=== PATIENT | female | born 1960 | race Caucasian/White ===

== ENCOUNTER 2025-01-09 13:45 | Outpatient (CLI) | payer OTHER, SELFPAY | END 2025-01-09 13:46 | disposition home or self-care (01) | LOC: AMB 01-12 09:47 | PROVIDERS: Visit Provider Student in an Organized Health Care Education/Training Program | DX: S79.911A Unspecified injury of right hip, initial encounter (principal); S69.92XA Unspecified injury of left wrist, hand and finger(s), initial encounter; S49.92XA Unspecified injury of left shoulder and upper arm, initial encounter; V49.49XA Driver injured in collision with other motor vehicles in traffic accident, initial encounter; Y92.488 Other paved roadways as the place of occurrence of the external cause | CPT/HCPCS: A0425; A0427 ==

== ENCOUNTER 2025-01-09 14:13 | Emergency (ER) | payer OTHER, SELFPAY ==
[2025-01-09] VITALS (15 sets, daily range): BP systolic 134–145; BP diastolic 68–106; PULSE 50–63; RESP 16–18; TEMP 36.7; O2SAT 95–100; BMI 22.1
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
--- OUTSIDE RECORDS SUMMARY | 2025-01-09 14:54 | XMS_ITS | Encounter Summary ---
Author Organization [facility] er Address [address] [place] [address] Care Team Providers Care Fish House Worker Name Role Phone Yazmin Mcintyre APRN Primary Care Provider Reason for Visit * Reason Comments Med Refill Encounter Details Date Type Department Care Team (Late st Contact Info) Description 12/28/2024 Refill [place] [address] [place] [address] Yazmin Mcintyre STAFF CLIMATE SCIENTIST [address] [place] [address] Bipolar 2 disorder (HCC) Social History Tobacco Use Types Packs/Day Years Used Date Smoking Tobacco: Never Passive Smoke Exposure: Never Smokeless Tobacco: Never Alcohol Use Standard Drinks/Week Comments Yes 0 (1 standard drink = 0.6 oz pur e alcohol) Rare B1300 Health Literacy Answer Date Recor ded How often do you need to hav e someone help you when you read instructions, pamphlets, or other written material from your doctor or pharmacy? Never 10/05/2024 [facility] Utilities Answer Date Recorded In the past 12 months has [facility] [employer]), gas, oil, or water [employer] threatened to shut off services in your home? No 10/05/2024 Humiliation, Afraid, Rape, and Kick questionnair e Answer Date Recorded Within the last year, have y ou been afraid of your partner or ex-partner? No 10/05/2024 Within the last year, have y ou been humiliated or emotionally abused in other ways by your partner or ex-partner? No Within the last year, have y ou been kicked, hit, slapped, or otherwise physically hurt by your partner or ex-partner? No 10/05/2024 Within the last year, have y ou been raped or forced to have any kind of sexual activity by your partner or ex-partner? No 10/05/2024 Social Connection and Isolat ion Panel [NHANES] Answer Date Recorded In a typical week, how many times do you talk on the phone with family, friends, or neighbors? More than three times a week 10/05/2024 How often do you get togethe r with friends or relatives? More than three times a week 10/05/2024 How often do you attend chur or baptist services? 1 to 4 times per year 10/05/2024 Do you belong to any clubs o r organizations such as temple groups, unions, fraternal or athletic groups, or school groups? No 10/05/2024 How often do you attend meet ings of the clubs or organizations you belong to? Never 10/05/2024 Are you , , di vorced, , never , or living with a partner? 10/05/2024 AUDIT-C Answer Date Recorded Q1: How often do you have a drink containing alcohol? Never 10/05/2024 Q2: How many drinks containi ng alcohol do you have on a typical day when you are drinking? Patient does not drink Q3: How often do you have si x or more drinks on one occasion? Never 10/05/2024 Overall Financial Resource Strain (CARDIA) Answe r Date Recorded How hard is it for you to pa y for the very basics like food, housing, medical care, and heating? Not hard at all 10/05/2024 PHQ-2 Answer Date Recorded PHQ-9 Total Score 0 12/02/2024 [facility] of Occupat ional Health - Occupational Stress Questionnaire Answer Date Recorded Do you feel stress - tense, restless, nervous, or anxious, or unable to sleep at night because your mind is troubled all the time - these days? Only a little 10/05/2024 Exercise Vital Sign Answer Date Recorde d On average, how many days pe r week do you engage in moderate to strenuous exercise (like a brisk walk)? 7 days 10/05/2024 On average, how many minutes do you engage in exercise at this level? 80 min 10/05/2024 Hunger Vital Sign Answer Date Recorded Within the past 12 months, y ou worried that your food would run out before you got the money to buy more. Never true 10/05/19 25 Within the past 12 months, t he food you bought just didn't last and you didn't have money to get more. Never true 10/05/2024 PRAPARE - Transportation Answer Date Re corded In the past 12 months, has l ack of transportation kept you from medical appointments or from getting medications? No 09/08 In the past 12 months, has l ack of transportation kept you from meetings, work, or from getting things needed for daily living? No 10/05/2024 Housing Stability Vital Sign Answer Nathan e Recorded In the last 12 months, was t here a time when you were not able to pay the mortgage or rent on time? No 08/07/2023 In the last 12 months, how many places have you lived? 3 08/07/2023 In the last 12 months, was t here a time when you did not have a steady place to sleep or slept in a halfway (including now)? No 08/07/2023 Housing Stability Vital Sign Answer Nathan e Recorded In the last 12 months, was t here a time when you were not able to pay the mortgage or rent on time? No 10/05/2024 In the past 12 months, how m any times have you moved where you were living? 0 10/05/2024 At any time in the past 12 m [facility], were you homeless or living in a halfway (including now)? No 10/05/2024 Interpersonal Safety Questionnaire Answer Date Recorded How often does anyone, alida zimmer family and friends, physically hurt you? Never 10/05/2024 How often does anyone, alida zimmer family and friends, insult or talk down to you? Never 10/05/2024 How often does anyone, alida zimmer family and friends, threaten you with harm? Never 10/05/2024 How often does anyone, alida zimmer family and friends, threaten you with harm? 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 * Telephone Encounter - Janay Diaz MA - 01/02/2025 2:38 PM CDT Patient is due for (recheck) appointment. PSR: Please contact patient to assist with scheduling. Return in about 6 weeks (around 11/16/2024) for Recheck: anxiety. Upcoming appointment with provider: Visit date not found Last visit in provider department: 11/18/2024 Last visit requested medication was discussed: 10/05/2024 Last Rx: 10/05/2024 # 30, 1 refill Requested Prescriptions Pending Prescriptions Disp Refills busPIRone (BUSPAR) 5 MG tablet [Pharmacy Med Name: BUSPIRONE HCL 5MG TABS] 30 tablet 1 Sig: TAKE ONE TABLET BY MOUTH EVERY DAY 12/02/2024 PHQ9: 0 10/05/2024 GAD7: 2 Vitals: BP Readings from Last 2 Encounters: 12/09/24 102/57 11/28/24 95/71 Last Controlled Substance Agreement (CSA): Last Random Urine Drug Screen (RUDS): documented in this encounter Plan of Treatment Upcoming Encounters Date Type Department Care Team (Late st Contact Info) Description 01/19/2025 11:15 AM CDT Office Visit [facility] Plastic Surgery [address] [place] [address] [phone] Sabi Jackson MBBS [address] [place], [place] [phone] documented as of this encounter Visit Diagnoses Diagnosis Bipolar 2 disorder (HCC) Other bipolar disorders documented in this encounter Care Teams Fish House Worker Relationship Specialty Start Date End Date Yazmin Mcintyre, STAFF CLIMATE SCIENTIST [address] [place] [address] PCP - General Family Medicine 10/05/23 documented as of this encounter
--- OUTSIDE RECORDS SUMMARY | 2025-01-09 14:54 | XMS_ITS | Clinical Summary ---
Author Organization [employer] [facility] [employer] [facility] Address [address] [place] [address] Care Team Providers Care Aviation Ordnance Officer Name Role Phone Yissel Quinn MD Primary Care Provider [phone] None, Provided Unavailable Unavailable Allergies Active Allergy Reactions Criticality Noted Date Comments Erythromycin Other - Describe In Comment Field 09/05/2016 Stomach ache Medications calcium carbonate/vitamin D2 (CALCIUM + VITAMIN D ORAL) 2 times daily. 1 Active multivitamin with iron-mineral tablet Take 1 Tab by mouth once daily. 1 Active lamoTRIgine (LAMICTAL) 100 mg tablet Take 100 mg by mouth. Active metFORMIN (GLUCOPHAGE) 1,000 mg tablet Take 1,000 mg by mouth. 8 Active propranolol ER (INDERAL LA) 120 mg Cs24 Sustained-Release capsule Take 120 mg by mouth. Active QUEtiapine (SEROQUEL XR) 400 mg Extended-Release tablet Take 400 mg by mouth. Active traZODone (DESYREL) 100 mg tablet 7 Active venlafaxine (EFFEXOR XR) 150 mg Extended-Release capsule Take 1 Cap by mouth once daily. 1 Active oxyCODONE (ROXICODONE) 5 mg immediate release tablet Take 1-2 Tablets (5-10 mg) by mouth. every 4 to 6 hours if needed for pain. 32 Tablet 08/26/2021 5:43 PM OFFICE ADMIN 1 Active hydrOXYzine pamoate (VISTARIL) 25 mg capsule Take 1-2 Capsules (25-50 mg) by mouth. every 4 to 6 hours if needed for pain/muscle spasm. 60 Capsule 08/26/2021 5:43 PM OFFICE ADMIN 1 Active ibuprofen (ADVIL; MOTRIN) 800 mg tablet Take 1 Tablet (800 mg) by mouth 3 times daily if needed for pain 60 Tablet 08/26/2021 5:43 PM OFFICE ADMIN 1 Active ondansetron (ZOFRAN ODT) [address] 1 Tablet (4 mg) on the tongue every 8 hours if needed. for nausea 14 Tablet 08/26/2021 5:43 PM OFFICE ADMIN 1 Active acetaminophen (TYLENOL EXTRA STRGTH) 500 mg tablet Take 2 Tablets (1,000 mg) by mouth every 6 hours if needed. for pain 100 Tablet 08/26/2021 5:43 PM OFFICE ADMIN 1 Active Active Problems No known active problems Social History Tobacco Use Types Packs/Day Years Used Date Smoking Tobacco: Never Assessed Social Connections Answer Date Recorded Frequency of Communication with Friends and Fami ly Not on file 09/03/2021 Financial Resource Strain Answer Date R ecorded Difficulty of Paying Living Expenses Not on file 09/03/2021 Difficulty of Paying Living Expenses Not on file 09/03/2021 Comments Unknown Sex and Gender Information Value Date Recorded Sex Assigned at Not on file Legal Sex Female 11:54 AM OFFICE ADMIN Gender Identity Not on file Sexual Orientation Not on file Obstetrics History Last Filed Vital Signs Vital Sign Reading Time Taken Comments Blood Pressure 126/69 11/18/2018 8:58 AM CDT Pulse 96 11/18/2018 8:58 AM CDT Temperature 36.6 C (97.9 F) 11/18/2018 8:58 AM CDT Respiratory Rate - - Oxygen Saturation 99% 11/18/2018 8:58 AM CDT Inhaled Oxygen Concentration - - Weight - - Height - - Body Mass Index - - Plan of Treatment Health Maintenance Due Date Last Done Comments Tdap 1973 Depression screening for age 12+ 1974 HIV for age 15-65 1977 BMI (ht and wt on same day) for age 18+ 1980 Hepatitis C screening for age 18-79 1980 Tetanus booster 1982 Pap test for age 21-65 1983 Colonoscopy through age 75 2007 Lipids for age 45-75 2007 Mammogram for age 45-75 2007 Pneumococcal series for age 50+ (1 of 1 - PCV) 2012 Zoster (shingles) series for age 50+ (1 of 2) 2012 COVID-19 vaccine series (3 - 2023- season) 2024 12/26/2020, 12/05/2020 Influenza Vaccine (Season Ended) 2025 RSV vaccine for adults or pr egnancy (1 - 1-dose 75+ series) 2037 [id number] [place] [id number] [email or web address] [address] [place] [id number] [facility] Care Teams Aviation Ordnance Officer Relationship Specialty Start Date End Date Yissel Quinn MD PCP - General Resident 12/24/20 None, Provided . 12/24/20
--- OUTSIDE RECORDS SUMMARY | 2025-01-09 14:54 | XMS_ITS | Encounter Summary ---
Author Organization [employer] er Address [address] [place] [address] Care Team Providers Care Brood Station Manager Name Role Phone Yazmin Mcintyre APRN Primary Care Provider Reason for Visit * Reason Onset Date Comments Incision Concern 12/21/2024 Encounter Details Date Type Department Care Team ([facility] st Contact Info) Description 12/21/[address] [facility] Plastic Surgery [address] [place] [address] Sabi Jackson MBBS [address] [place] [address] Incision Concern Social History Tobacco Use Types Packs/Day Years [...] from your doctor or pharmacy? Never 10/05/2024 [facility] Utilities Answer Date Recorded In the past 12 months has e [employer], gas, oil, or water [employer] threatened to shut off services in your [...] How often do you attend chur or presybeterian services? 1 to 4 times per year 10/05/2024 Do you belong to any clubs o r organizations such as voodoo groups, unions, fraternal or athletic groups, or [...] Date Recorded PHQ-9 Total Score 0 12/02/2024 [facility] of Occupat ional Health - Occupational Stress [...] place to sleep or slept in a half-way (including now)? No 08/07/2023 Housing Stability Vital Sign Answer Nathan e Recorded In the last 12 months, was t here a time when you were not able to pay the mortgage or rent on time? No 10/05/2024 In the past 12 months, how m any times have you moved where you were living? 0 10/05/2024 At any time in the past 12 m [facility], were you homeless or living in a half-way (including now)? 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 Patient states she thinks her incision is infected. Patient had surgery 12/09/2024 for a labia majora reduction with Dr. Saleem. Please call patient. documented in this encounter Plan of Treatment Upcoming Encounters Date Type Department Care Team (Late st Contact Info) Description 01/19/2025 11:15 AM CDT Office Visit [facility] Plastic Surgery [address] [place] [phone] [place] [address] [place] [phone] documented as of this encounter Visit Diagnoses Not on filedocumented in this encounter Care Teams Brood Station Manager Relationship Specialty Start Date End Date Yazmin Mcintyre APRN [address] [place] [phone] PCP - General Family Medicine 10/05/23 documented as of this encounter
--- OUTSIDE RECORDS SUMMARY | 2025-01-09 14:54 | XMS_ITS | Encounter Summary ---
Author Organization [facility] er Address [address] [place] [address] Care Team Providers Care Parts Picker Name Role Phone Yazmin Mcintyre APRN Primary Care Provider Encounter Details Date Type Department Care Team ([facility] st Contact Info) Description 12/21/2024 Telephone [facility] Plastic Surgery [address] [place] [address] Diony Cole, MEHNAZ [address] [place] [phone] Social History Tobacco Use Types Packs/Day Years [...] from your doctor or pharmacy? Never 10/05/2024 [facility] Utilities Answer Date Recorded In the past 12 months has [facility] [employer] gas, oil, or water [employer] threatened to shut off services in your [...] How often do you attend chur or lutheran services? 1 to 4 times per year 10/05/2024 Do you belong to any clubs o r organizations such as moravian groups, unions, fraternal or athletic groups, or [...] Date Recorded PHQ-9 Total Score 0 12/02/2024 [facility] of Occupat ional Health - Occupational Stress [...] place to sleep or slept in a usp (including now)? No 08/07/2023 Housing Stability Vital Sign Answer Nathan e Recorded In the last 12 months, was t here a time when you were not able to pay the mortgage or rent on time? No 10/05/2024 In the past 12 months, how m any times have you moved where you were living? 0 10/05/2024 At any time in the past 12 m [facility], were you homeless or living in a usp (including now)? 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 Patient denies fever, n/v, diarrhea, chest pain. Patient stated she tried Tylenol and Ibuprofen with no relief. Orchid Hand suggested Katie isaac the office to be evaluated and to discuss next steps. Patient agreed with plan and was transferred to PSR to schedule and appointment. documented in this encounter Plan of Treatment Upcoming Encounters Date Type Department Care Team (Late st Contact Info) Description 01/19/2025 11:15 AM CDT Office Visit [facility] Plastic Surgery [address] [place] [phone] Sabi Jackson MBBS [address] [place] [address] [phone] documented as of this encounter Visit Diagnoses Not on filedocumented in this encounter Care Teams Parts Picker Relationship Specialty Start Date End Date Yazmin Mcintyre APRN [address] [place] [phone] PCP - General Family Medicine 10/05/23 documented as of this encounter
--- OUTSIDE RECORDS SUMMARY | 2025-01-09 14:54 | XMS_ITS ---
Author Organization [facility] Address [address] [place] [address] Care Team Providers Care Recreation Manager Name Role Phone Hemant Mijares MD Primary Care Provider [phone] Christine Davila Pharm D Unavailable [phone] Medication Therapy Management Status:Identified (Enrolling) Start date:01/30/2023 Enrollment reason:Provider Referral Current support & services provided:Referred Overview Medication Therapy Management Case Team Name Relationship Phone Christine Davila Pharm D (Responsible Staff) Continued Care and Services Coordination
--- OUTSIDE RECORDS SUMMARY | 2025-01-09 14:54 | XMS_ITS | Encounter Summary ---
Author Organization [facility] er Address [address] [place] [address] Care Team Providers Care Public Housing Manager Name Role Phone Yazmin Mcintyre APRN Primary Care Provider Encounter Details Date Type Department Care Team ([facility] st Contact Info) Description 12/21/2024 2:30 PM CDT Office Visit [facility] Plastic Surgery [address] [place] [address] [place] [address] [place] [address] Post-op pain (Primary Dx); Hypertrophy of labia Social History Tobacco Use Types Packs/Day Years [...] from your doctor or pharmacy? Never 10/05/2024 [facility] Utilities Answer Date Recorded In the past 12 months has e [employer], gas, oil, or water [employer] threatened to shut off services in your [...] How often do you attend chur or orthodox services? 1 to 4 times per year 10/05/2024 Do you belong to any clubs o r organizations such as samaritan groups, unions, fraternal or athletic groups, or [...] Date Recorded PHQ-9 Total Score 0 12/02/2024 [facility] of Occupat ionde Health - Occupational Stress Questionnaire Answer Date [...] place to sleep or slept in a correction (including now)? No 08/07/2023 Housing Stability Vital Sign Answer Nathan e Recorded In the last 12 months, was t here a time when you were not able to pay the mortgage or rent on time? No 10/05/2024 In the past 12 months, how m any times have you moved where you were living? 0 10/05/2024 At any time in the past 12 m [facility], were you homeless or living in a correction (including now)? 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 The redness will gradually go away. Please continue to keep area clean and dry. Do not apply any antiobiotic ointment to the surgical site. If your pants is rubbing on the incision, wear something loose, or sweat pants that will not rub onthe incision. Take tramadol every 6 hours, for moderate to severe pain. Alternate Ibuprofen 600mg every 6 hours, and extra strength Tylenol 1,000mg every 6 hours for mild pain. Call Plastics immediately if you have the [phone] Signs and symptoms of infection: Increased redness and increased swelling, surrounding incision Pus drains, associated with bad odor Develop a temperature. 100.4 degrees or higher Increased pain, you are taking tramadol around the clock documented in this encounter Progress Notes * Vera Mahoney RN - 12/21/2024 2:30 PM CDT Pain 8/. No fevers. Last taken Oxy on Thursday. Last pain medication yesterday- 800mg ibuprofen Cleansing with just water. Plan of Care: Your incision is not infected. The redness will gradually go away. Please continue to keep area clean and dry. Do not apply any antiobiotic ointment to the surgical site. Take tramadol every 6 hours, for moderate to severe pain. Alternate Ibuprofen 600mg every 6 hours, and extra strength Tylenol 1,000mg every 6 hours for mild pain. If your pants is rubbing on the incision, wear something loose, or sweat pants that will not rub onthe incision. Reviewed and demonstrated incisional massaging starting 3 weeks post surgery, December 30, 2024. Signs and symptoms of infection: Increased redness and increased swelling, surrounding incision Pus drains, associated with bad odor Develop a temperature. 100.4 degrees or higher Increased pain, you are taking tramadol around the clock Sent tramadol to desired pharmacy. Went over incisional massaging in three weeks from surgery. * Sabi Jackson MBBS - 12/21/2024 2:30 PM CDT Katie Downing returns 12 days after labioplasty with concerns of wound infection. Patient reports painat her surgical sites and tenderness along the labia majora incisions. She states her scars are red, and she has noticed scant drainage from the left lateral aspect of the mons scar. She denies fever, chills, foul odor or other drainage from her incisions. Patient states she is out of narcotic pain medication. Exer strength Tylenol and ibuprofen 800 mg are not enough to manage her symptoms. On exam, incisions are healing well and without signs of infection. Scars are appropriately erythematous, but this is reactive erythema and not erythema of cellulitis. Scars are well-approximated without areas of wound dehiscence. Small subcutaneous hematoma along the left labia majora scar. Reassurance was provided. Her scars are healing well without signs of complications. It is normal for scars to be red and lumpy in the first few weeks after surgery. Scars will soften and fade over several months after surgery. The small hematoma will resolve spontaneously, likely within the next couple of weeks. Patient states she does not like the transverse scar across her mons and her lower abdomen. I reassured her that it is still early in her recovery, and we will continue to look at her scars together over the next several months. In the interim, I will provide her with a prescription for tramadol to assist with her pain management. We again discussed alternating Tylenol, ibuprofen and tramadol for optimal pain relief. Patient educated on signs and symptoms that would warrant earlier evaluation. She will follow-up with me at 6 weeks or sooner as needed. MORTEZA Healy documented in this encounter Plan of Treatment Upcoming Encounters Date Type Department Care Team (Late st Contact Info) Description 01/19/2025 11:15 AM CDT Office Visit [facility] Plastic Surgery [address] [place] [phone] Sabi Jackson MBBS [address] [place] [address] documented as of this encounter Visit Diagnoses Diagnosis Post-op pain- Primary Other acute postoperative pain Hypertrophy of labia documented in this encounter Care Teams Public Housing Manager Relationship Specialty Start Date End Date Yazmin Mcintyre, BRINE TANK OPERATOR [address] [place] [phone] PCP - General Family Medicine 10/05/23 documented as of this encounter
--- OUTSIDE RECORDS SUMMARY | 2025-01-09 14:54 | XMS_ITS | Clinical Summary ---
Author Organization [facility] er Address [address] [place] [address] Care Team Providers Care Block Captain Name Role Phone Yazmin Mcintyre APRN Primary Care Provider Allergies Active Allergy Reactions Criticality Noted Date Comments Erythromycin Other (see comments) 09/05/2016 Stomach ache Metformin Diarrhea Low 05/29/2022 Medications valACYclovir (Valtrex) 500 MG tabletIndication s:Herpes simplex infection of genitourinary system Take 1 tablet (500 mg total) by mouth 1 (one) time each day On file. 90 tablet 3 10/05/19 25 026 Active traZODone (DESYREL) 100 MG tabletIndication s:Insomnia, unspecified type Take 3 tablets (300 mg total) by mouth at night if needed for sleep On file. 270 tablet 3 10/05/19 25 026 Active buPROPion XL (WELLBUTRIN XL) 300 MG 24 hr tabletIndication s:Bipolar 2 disorder (HCC) Take 1 tablet (300 mg total) by mouth at bed time On file. 90 tablet 3 10/05/19 25 026 Active lamoTRIgine (LaMICtal) 100 MG tabletIndication s:Bipolar 2 disorder (HCC) Take 2 tablets (200 mg total) by mouth 2 (two) times a day On file 360 tablet 3 10/05/19 25 026 Active albuterol HFA (Ventolin HFA) 108 (90 Base) MCG/ACT inhalerIndicatio ns:Influenza A Inhale 2 puffs every 4 (four) hours if needed for wheezing or shortness of breath 18 g 11/19/19 25 026 Active oxyCODONE (Roxicodone) 5 MG immediate release tabletIndication s:Post-op pain Take 1 tablet (5 mg total) by mouth every 4 (four) hours if needed for moderate pain or severe pain for up to 20 doses 20 tablet 12/03/19 25 Active busPIRone (BUSPAR) 5 MG tabletIndication s:Bipolar 2 disorder (HCC) TAKE ONE TABLET BY MOUTH EVERY DAY 90 tablet 01/04/20 25 Active busPIRone (BUSPAR) 5 MG tabletIndication s:Bipolar 2 disorder (HCC) Take 1 tablet (5 mg total) by mouth 1 (one) time each day 30 tablet 1 10/05/19 25 025 Discontinued ondansetron ODT (ZOFRAN-ODT) 4 MG dispersible tabletIndication s:Post-operative nausea and vomiting Take 1 tablet (4 mg total) by mouth every 8 (eight) hours if needed for nausea or vomiting for up to 5 doses 5 tablet 12/03/19 25 025 Discontinued(T herapy Completed) cefuroxime (CEFTIN) 500 MG tabletIndication s:Prophylactic antibiotic Take one tablet, one hour before procedure. Take second tablet at night, day of procedure. 2 tablet 12/03/19 25 025 Discontinued(T herapy Completed) diazePAM (Valium) 5 MG tabletIndication s:Anticipatory anxiety Take one tablet one hour before procedure. 1 tablet 12/03/19 25 025 Discontinued(T herapy Completed) LORazepam (Ativan) 1 MG tabletIndication s:Anticipatory anxiety Do not take until Provider instructs you when to take them. 3 tablet 12/03/19 25 025 Discontinued(T herapy Completed) traMADol (Ultram) 50 MG tabletIndication s:Post-op pain Take 1-2 tablets (50-100 mg total) by mouth every 6 (six) hours if needed for moderate pain or severe pain for up to 5 days 20 tablet 12/22/19 25 025 Active Problems Problem Noted Date Diagnosed Date Influenza A 11/18/2024 Assessment & Plan (11/18/2024 4:53 PM CDT): Continue Mucinex 1200 mg 2 x day for 7-10 days Start zyrtec, Claritin or marcie daily for 14-30 days Start Albuterol inhaler: 2 puffs every 4 hours as needed Visit for annual health examination 10/05/2024 Assessment & Plan (10/05/2024 12:22 PM TRIPLE VALVE MECHANIC): Fasting labs will be ordered today Encounter for screening mammogram for breast can cer 10/05/2024 Insomnia 10/05/2024 Assessment & Plan (10/05/2024 12:22 PM TRIPLE VALVE MECHANIC): Continue Trazodone 100 mg daily Acquired left foot drop 11/17/2023 Assessment & Plan (11/17/2023 5:13 PM CDT): Referral to podiatry Wear comfortable/supportive shoes Wear supportive shoes in the house also, do not go bear foot Possible physical therapy but will let podiatry make final decision Skin infection 11/17/2023 Assessment & Plan (11/17/2023 5:16 PM CDT): If sore on left labia minora returns, use Bactroban ointment on it 3 times a day for 10 days. Eczema 10/23/2023 Assessment & Plan (10/23/2023 7:02 PM TRIPLE VALVE MECHANIC): Can try Hydrocortisone cream 2 x day for 2 weeks, then stop for 2 weeks and then repeat until Eczema is gone. Will send a prescription of Clobetasol cream to pharmacy if hydrocortisone cream is not helping Follow up in not improving, possible referral to dermatology Herpes simplex infection of genitourinary system 10/23/2023 Assessment & Plan (10/05/2024 12:24 PM TRIPLE VALVE MECHANIC): Continue Valacyclovir 500 mg daily Assessment & Plan (10/23/2023 7:02 PM TRIPLE VALVE MECHANIC): Start Valacyclovir 500 mg tablet daily Cultures taken, will contact patient when these are back Type 2 diabetes mellitus treated without insulin 08/07/2023 Assessment & Plan (08/07/2023 12:36 PM TRIPLE VALVE MECHANIC): Diabetes is improving with treatment. Continue current treatment regimen. Diabetes will be reassessed in 6 months. Fasting Glucose and A1C ordered today Katie to follow up in 6 months for Diabetic labs and medication renewal Excess skin 08/07/2023 Assessment & Plan (11/18/2024 4:54 PM CDT): Referral placed to plastic surgery Assessment & Plan (08/07/2023 12:38 PM TRIPLE VALVE MECHANIC): 70 lb weight loss since going on Ozempic for Diabetes Type 2 Referral to Plastics for excess skin management Mixed stress and urge urinary incontinence 01/26 SOSA (generalized anxiety disorder) 06/09/2016 Assessment & Plan (10/05/2024 12:24 PM TRIPLE VALVE MECHANIC): Psychological condition is worsening. Medication changes per orders. Psychological condition will be reassessed 6 weeks. Continue Bupropion XL 300 mg daily Continue Lamotrigine 200 mg 2 x day Start Buspirone 5 mg daily History of suicide attempt 06/09/2016 Overview (11/25/2023): Overview: Medication overdose, 2009, hospitalized at [place] [facility] History of alcohol abuse 06/09/2016 Overview (11/25/2023): Overview: x9 yrs when to second , rare alcohol use now Carpal tunnel syndrome, bilateral 11/05/2015 Obstructive sleep apnea syndrome 11/05/2015 Bipolar 2 disorder 10/29/2015 Assessment & Plan (10/05/2024 12:24 PM TRIPLE VALVE MECHANIC): Psychological condition is worsening. Medication changes per orders. Psychological condition will be reassessed 6 weeks . Continue Bupropion XL 300 mg daily Continue Lamotrigine 200 mg 2 x day Start Buspirone 5 mg daily Status post bariatric surgery 11/29/2010 Overview (11/25/2023): Overview: S/p gastric band 11/2010 ; LAP GASTRIC BANDING (APS) Hyperlipidemia 08/23/2010 Calculus of kidney 08/23/2010 Overview (11/25/2023): Overview: Nephrolithiasis Resolved Problems Problem Noted Date Diagnosed Date Resolved Date Acute cough 11/18/2024 11/18/2024 Encounters Date Type Department Care Team Description 12/28/2024 Refill [facility] [address] [place] [address] Yazmin Mcintyre, CANDY VENDOR Bipolar 2 disorder (HCC) 12/21/2024 2:30 PM CDT Office Visit [facility] Plastic Surgery [facility] [address] [place] [phone] Sabi Jackson MBBS Post-op pain (Primary Dx); Hypertrophy of labia 12/21/2024 Telephone [facility] Plastic Surgery [address] [place] [phone] Diony Cole RN 12/21/2024 Telephone [facility] Plastic Surgery [address] [place] [phone] Sabi Jackson MBBS Incision Concern 12/09/2024 12:00 PM CDT Office Visit [facility] Plastic Surgery [facility] [address] [place] [phone] Guanaco Saleem MD Hypertrophy of labia (Primary Dx) 12/06/2024 Telephone Family Medicine 4th Floor [address] [place] [address] Yazmin Mcintyre APRN 12/02/2024 12:00 PM CDT Clinical Support [facility] Plastic Surgery [address] [place] [phone] Post-op pain (Primary Dx); Post-operative nausea and vomiting; Anticipatory anxiety; Prophylactic antibiotic; Hypertrophy of labia 11/28/2024 9:30 AM CDT Office Visit [facility] Plastic Surgery [address] [place] [phone] Sabi Jackson MBBS Encounter for cosmetic procedure (Primary Dx) 11/28/2024 9:00 AM CDT Office Visit [facility] Plastic Surgery [address] [place] [address] Guanaco Saleem MD Hypertrophy of labia (Primary Dx) 11/18/2024 4:20 PM CDT Office Visit [facility] [address] [place] [address] Yazmin Mcitnyre APRN Influenza A (Primary Dx); Acute cough; Excess skin 11/02/2024 Orders Only Family Medicine 4th Floor [address] [place] [address] Yazmin Mcintyre APRN Type 2 diabetes mellitus treated without insulin (HCC) 10/22/2024 Refill [facility] [address] [place] [address] Yazmin Mcintyre APRN Herpes simplex infection of genitourinary system from Last 3 Months Immunizations Immunization Administration Dates Next Due Hepatitis B 10/29/2015,07/18/2002 Influenza, Quadrivalent 10/01/2020,06/03,11/22/2018,05/06/2017,05/10/20 16,07/14/2015,09/30/2012,10/13/2011,08/08/2010,08/27,07/23/2007 Tdap 11/22/2018,08/16/2008 Zoster Recombinant 08/18/2022,05/29/2022 Family History Relation Status Comments Brother Alive Father Maternal Grandfather Maternal Grandmother Mother Alive Paternal Grandfather Paternal Grandmother Son 1 Alive Son 2 Alive Social History Tobacco Use Types Packs/Day Years Used Date Smoking Tobacco: Never Passive Smoke Exposure: Never Smokeless Tobacco: Never Tobacco Cessation:Counseling Given: No Alcohol Use Standard Drinks/Week Comments Yes 0 (1 standard drink = 0.6 oz pur e alcohol) Rare B1300 Health Literacy Answer Date Recor ded How often do you need to hav e someone help you when you read instructions, pamphlets, or other written material from your doctor or pharmacy? Never 10/05/2024 [facility] Utilities Answer Date Recorded In the past 12 months has e electric, gas, oil, or water company threatened to shut off services in your [...] 10/05/2024 How often do you attend chur ch or mosque services? 1 to 4 times per year 10/05/2024 Do you belong to any clubs o r organizations such as zoroastrian groups, unions, fraternal or athletic groups, or [...] Date Recorded PHQ-9 Total Score 0 12/02/2024 [facility] Occupat ional [facility] - Occupational Stress Questionnaire Answer Date Recorded [...] place to sleep or slept in a penitentiary (including now)? No 08/07/2023 Housing Stability Vital Sign Answer Nathan e Recorded In the last 12 months, was t here a time when you were not able to pay the mortgage or rent on time? No 10/05/2024 In the past 12 months, how m any times have you moved where you were living? 0 10/05/2024 At any time in the past 12 m [facility], were you homeless or living in a penitentiary (including now)? No 10/05/2024 Interpersonal Safety Questionnaire [...] on file Legal Sex Female 1:34 PM TRIPLE VALVE MECHANIC Gender Identity Not on file Sexual Orientation Not on file Last Filed Vital Signs Vital Sign Reading Time Taken Comments Blood Pressure 102/57 12/09/2024 1:16 PM CDT Pulse 66 12/09/2024 1:16 PM CDT Temperature 36.9 C (98.4 F) 12/09/2024 12:00 PM CDT Respiratory Rate 20 11/18/2024 4:21 PM CDT Oxygen Saturation 100% 12/09/2024 1:16 PM CDT Inhaled Oxygen Concentration - - Weight 48.4 kg (106 lb 11.2 oz) 11/28/2024 9:37 AM CDT Height 157.5 cm (5' 2.01) 11/28/2024 9:37 AM CD T Body Mass Index 19.51 11/28/2024 9:37 AM CDT Plan of Treatment Upcoming Encounters Date Type Department Care Team (Late st Contact Info) Description 01/19/2025 11:15 AM CDT Office Visit [facility] Plastic Surgery [address] [place] [address] [phone] Sabi Jackson MBBS [address] [place], [place] [phone] Health Maintenance Due Date Last Done Comments CT Colonography 1962 Colonoscopy 1962 FIT-DNA 1962 Sigmoidoscopy 1962 iFOBT 1962 Mammogram 11/18/2024 11/19/2023, 06/07, 06/24/2022, Additional history exists Diabetes: Hemoglobin A1C 04/04/2025 025, 11/23/2023, 05/29/2022 Diabetes: Foot Exam 10/05/2025 10/05/2024 Diabetes: Urine Protein Screening 10/05/2025 10/05/2024 Lipid Panel 10/05/2025 10/05/2024, 01/06, 05/29/2022, Additional history exists Diabetes: Retinopathy Screening 03/07/2026 03/07/2024 Pap Smear 01/27/2028 01/26/2023 DTaP,Tdap,and Td Vaccines (3 - Td or Tdap) 11/22/2028 11/22/2018, 08/16/2008 Colorectal Cancer Screening 11/05/2030 Postponed from 1962 (Medical Decision) COVID-19 Vaccine Discontinued 12/26/2020, 12/05/2020 Zoster Vaccines Completed 08/18/2022, 05/29/2022 HPV Vaccines Aged Out No longer eligi ble based on patient's age to complete this topic Influenza Vaccine Discontinued Pneumococcal Vaccine: 50+ Years Discontinued Medical Devices Implanted Type Area Cause Analyst Device Identifier Shelf Expiration Date Model / Serial / Lot Creole Memorygel Breast Implant Smooth Round High Profile Gel-Filled Breast Implant 400cc Implanted:Qty: 1 on 12/02/2023 by Sabi Jackson MBBS at [facility] Right: Breast 03/20/2026 [id number] / [id number] / NA Creole Memorygel Breast Implant Snmooth Round High Profile Gel Filled Breast Implant 400cc Implanted:Qty: 1 on 12/02/2023 by Sabi Jackson MBBS at [facility] Left: Breast 06/01/2028 [id number] / [id number] / NA Procedures Procedure Name Priority Date/Time Associated Diagnosis Comments FLU(A/B), ORDAZ ID NOW, PCR Routine 11/18/2024 4:28 PM CDT Acute cough COVID-19, ORDAZ ID NOW, PCR Routine 11/18/2024 4:26 PM CDT Acute cough MICROALBUMIN/CREATINI NE RATIO Routine 10/05/2024 11:12 AM TRIPLE VALVE MECHANIC Type 2 diabetes mellitus treated without insulin (HCC) HEMOGLOBIN A1C Routine 10/05/2024 11:08 AM TRIPLE VALVE MECHANIC Type 2 diabetes mellitus treated without insulin (HCC) LIPID PANEL Routine 10/05/2024 11:08 AM TRIPLE VALVE MECHANIC Hyperlipidemia, unspecified hyperlipidemia type MAMMOGRAM BREAST SCREENING TOMOSYNTHESIS BILATERAL Routine 11/19/2023 2:16 PM CDT Pre-op testing from Last 3 Months or Most Recently Relevant to Health Maintenance Results * (ABNORMAL) Flu, Ordaz ID Now, PCR (11/18/2024 4:28 PM CDT) Pathologist [facility] Flu Source Nasal 11/18/2024 4:34 PM CDT [facility] Influenza A, PCR POSITIVE(A) Negative 11/18/2024 4:34 PM CDT [facility] Influenza B, PCR NEGATIVE Negative 11/18/2024 4:34 PM CDT [facility] Flu Interp see below 11/18/2024 4:34 PM CDT [facility] Comment: Flu A Viral RNA Detected; Flu B Viral RNA Not Detected. This result does not rule out co-infections with other pathogens or identify specific influenza A virus subtypes. Testing was performed using the Ordaz ID NOW A & B 2 Assay. Swab (Nasal) 11/18/2024 4:28 PM CDT 11/18/2024 4:28 PM CDT us Yazmin Mcintyre APRN LAB MOLECULAR DIAGNOST ICS ORDERABLES Final Result [facility] [address] [place] [address] * Covid-19, Ordza ID Now, PCR (11/18/2024 4:26 PM CDT) [facility] [place] [facility] Covid Source Nasal 11/18/2024 4:34 PM CDT [facility] Covid-19, ID Now PCR NEGATIVE Negative 11/18/2024 4:34 PM CDT [facility] Comment: Negative results should be treated as presumptive and, if inconsistent with clinical signs and symptoms or necessary for patient management, should be tested with an alternative molecular assay. Testing was performed using the Ordaz ID NOW COVID-19 2.0 assay. Swab (Nasal) 11/18/2024 4:26 PM CDT 11/18/2024 4:27 PM CDT Yazmin Mcintyre APRN LAB MOLECULAR DIAGNOST ICS ORDERABLES Final Result Performing Organization Address [facility] Co de Phone Number [facility] [address] [place] [address] * Microalbumin/Creatinine Ratio (10/05/2024 11:12 AM TRIPLE VALVE MECHANIC) Microalbumin,mg/ day 6.2 0.0 - 16.6 mg/L 10/06/2024 2:18 PM TRIPLE VALVE MECHANIC [facility] Creatinine, Urine 106 mg/dL 10/06/2024 2:19 PM TRIPLE VALVE MECHANIC [facility] Comment: No established reference range. Microalb/Creat Ratio 6 0 - 24 mg/g 10/06/2024 2:18 PM TRIPLE VALVE MECHANIC [facility] Urine (Urine, Clean Catch) 10/05/2024 11:12 AM TRIPLE VALVE MECHANIC 10/06/2024 1:25 PM TRIPLE VALVE MECHANIC Yazmin Mcintyre APRN LAB URINE ORDERABLES F inal Result [facility] [address] [place] [address] * Hemoglobin A1c (10/05/2024 11:08 AM TRIPLE VALVE MECHANIC) Hemoglobin A1C 4.8 4.0 - 5.6 % A1C 10/06/2024 1:54 PM TRIPLE VALVE MECHANIC [facility] Comment: Reference Range 4.0-5.6% is for non- adults >=18 yrs <5.6% Non-Diabetic 5.7-6.4% Increased risk of Diabetes >=6.5% Indicative of Diabetes <7.0% ADA goal for glycemic control Methodology may not detect all hemoglobin variants which can affect A1c results. Method certified by National Glycohemoglobin Standardization Program. Blood (Blood, Venous) 10/05/2024 11:08 AM TRIPLE VALVE MECHANIC 10/06/2024 1:25 PM TRIPLE VALVE MECHANIC Yazmin Mcintyre APRN LAB BLOOD ORDERABLES F inal Result [facility] [address] [place] [address] * Lipid panel (10/05/2024 11:08 AM TRIPLE VALVE MECHANIC) [facility] [place] [facility] Cholesterol 177 0 - 199 mg/dL 10/06/2024 5:51 PM [facility] Comment: Recommended by National Cholesterol Education Program (ATP III) -------- Cholesterol Ranges -------- <200 Desirable 200-239 Borderline high >=240 High Triglycerides 67 0 - 149 mg/dL 10/06/2024 5:51 PM TRIPLE VALVE MECHANIC [facility] Comment: -------- TRIG Ranges -------- <150 Normal 150-199 Borderline high 200-499 High >=500 Very high HDL 74 40 - 250 mg/dL 10/06/2024 5:51 PM [facility] Comment: -------- HDL Ranges -------- <40 Low 40-59 Normal >=60 Optimal LDL Calculated 90 0 - 99 mg/dL 10/06/2024 5:51 PM TRIPLE VALVE MECHANIC [facility] Comment: -------- LDL Ranges -------- <100 Optimal 100-129 Near optimal/above optimal 130-159 Borderline high 160-189 High >=190 Very high Fasting? Yes 10/05/2024 11:08 AM [facility] Blood 10/05/2024 11:0 8 AM TRIPLE VALVE MECHANIC 10/06/2024 1:29 PM TRIPLE VALVE MECHANIC Yazmin ProctorKai Mcintyre CANDY VENDOR LAB BLOOD ORDERABLES F inal Result [facility] [address] [place] [address] * Mammogram breast screening tomosynthesis bilateral (11/19/2023 2:16 PM CDT) Anatomical Region Laterality Modality Breast Bilateral Mammography 11/19/2023 2:16 PM CDT Impressions 11/19/2023 3:57 PM CDT IMPRESSION: BILATERAL BREASTS Negative; no evidence of malignancy. Routine follow-up is recommended in 1 year, or at next clinically-appropriate interval. ASSESSMENT: BI-RADS 1: Final Overall Assessment: Negative ResultCode BIRADS: 1 Side: B-Bilateral Breast composition: 1-The breasts are almost entirely fatty Recommendation: N-Normal interval follow up in 12 months CAD REVIEW: Computer aided detection equipment was used during the interpretation of this study. - Narrative 11/19/2023 3:57 PM CDT EXAM DESCRIPTION: MAMMOGRAM BILATERAL SCREENING DIGITAL WITH JOSH INDICATION: 63 y/o female. pre op surgery 3-13 breast surgery IMPLANTS SCREENING RISK FACTOR: Personal: Post-menopausal patient Family: No family history of breast cancer COMPARISON: No Comparison FINDINGS: Routine bilateral combination 2D/DBT screening examination including CC and MLO projections. The breasts are almost entirely fatty. No significant masses, calcifications or other abnormalities are seen. Procedure Note Michelle Bradley MD - 11/19/2023 EXAM DESCRIPTION: MAMMOGRAM BILATERAL SCREENING DIGITAL WITH JOSH INDICATION: 63 y/o female. pre op surgery 3-13 breast surgery IMPLANTS SCREENING RISK FACTOR: Personal: Post-menopausal patient Family: No family history of breast cancer COMPARISON: No Comparison FINDINGS: Routine bilateral combination 2D/DBT screening examination including CC and MLO projections. The breasts are almost entirely fatty. No significant masses, calcifications or other abnormalities are seen. IMPRESSION: BILATERAL BREASTS Negative; no evidence of malignancy. Routine follow-up is recommended in 1 year, or at next clinically-appropriate interval. ASSESSMENT: BI-RADS 1: Final Overall Assessment: Negative ResultCode BIRADS: 1 Side: B-Bilateral Breast composition: 1-The breasts are almost entirely fatty Recommendation: N-Normal interval follow up in 12 months CAD REVIEW: Computer aided detection equipment was used during the interpretation of this study. - Sabi PRO IMG BI PROCEDURES Fin al Result from Last 3 Months or Most Recently Relevant to Health Maintenance Insurance [facility] Care Teams Block Captain Relationship Specialty Start Date End Date Yazmin Mcintyre APRN [address] [place] [phone] PCP - General Family Medicine 10/05/23
--- OUTSIDE RECORDS SUMMARY | 2025-01-09 14:54 | XMS_ITS | Clinical Summary ---
Author Organization [facility] Address [address] [place] [address] Care Team Providers Care Supervisor Cigar Processing Name Role Phone None Reported, Pcp Primary Care Provider Unavail able Source Comments Patient records contain information from all sites at [facility]. For routine questions regarding patient records, call [phone] during business hours, M-F 8:00 AM - 5:00 PM Central Time. Record requests for emergency care only can be directed to [phone] at any time.[facility] Allergies No known active allergies Medications semaglutide (Ozempic) 1 mg/dose (4 mg/3 mL) injection Inject 1 mg under the skin every 7 (seven) days. Active Social History Tobacco Use Types Packs/Day Years Used Date Smoking Tobacco: Never Tobacco Cessation:Counseling Given: Not Answered Dental Answer Date Recorded Dental: Regular Dentist Unknown 05/23/20 24 Comments No Sex and Gender Information Value Date Recorded Sex Assigned at Not on file Legal Sex Female 11:44 AM CDT Gender Identity Not on file Sexual Orientation Not on file Last Filed Vital Signs Vital Sign Reading Time Taken Comments Blood Pressure 109/65 05/23/2024 11:53 AM CDT Pulse 60 05/23/2024 11:53 AM CDT Temperature - - Respiratory Rate 16 05/23/2024 1:05 PM CDT Oxygen Saturation 99% 05/23/2024 11:53 AM CDT Inhaled Oxygen Concentration - - Weight - - Height - - Body Mass Index - - Plan of Treatment Health Maintenance Due Date Last Done Comments CT Colonography 1962 Cologuard 1962 Colonoscopy 1962 Colorectal Cancer Screening 1962 FIT 1962 HIV Screening 1962 Hepatitis C Screening 1962 Lipid (Cholesterol) Screening 1962 Pneumococcal vaccine (50+ years) (1 of 1 - PCV) 2012 COVID-19 Vaccine (3 - 2023- season) 2024 12/26/2020, 12/05/2020 Influenza Vaccine (#1) 2024 , 06/03/2019, 11/22/2018, Additional history exists Depression Screening (Annual PHQ-2) 09/07/2024 Mammogram 11/18/2024 11/19/2023, 11/05, 06/24/2022, Additional history exists Cervical/Vaginal Cancer Screening 01/26/2026 01/26/2023 Fasting Glucose for Diabetes Screening 11/22/2026 11/23/2023 DTaP,Tdap,and Td Vaccines (3 - Td or Tdap) 11/22/2028 11/22/2018, 08/16/2008 Zoster Vaccines Completed 08/18/2022, 05/29/2022 IPV Vaccines Aged Out No longer eligi ble based on patient's age to complete this topic [place] [address] [place] [address] Care Teams Supervisor Cigar Processing Relationship Specialty Start Date End Date None Reported, Pcp PCP - General Family Medicine 05/23/24
--- OUTSIDE RECORDS SUMMARY | 2025-01-09 14:55 | XMS_ITS | Encounter Summary ---
Author Organization [facility] er Address [address] [place] [address] Care Team Providers Care Cabin Furnishings Installer Name Role Phone Yazmin Mcintyre APRN Primary Care Provider Encounter Details Date Type Department Care Team ([facility] st Contact Info) Description 11/28/2024 9:00 AM CDT Office Visit [facility] Plastic Surgery [address] [place] [phone] Guanaco Saleem MD [address] [place] [phone] Hypertrophy of labia (Primary Dx) Social History Tobacco Use Types Packs/Day Years [...] from your doctor or pharmacy? Never 10/05/[address] [facility] Utilities Answer Date Recorded In the past 12 months has e [place], gas, oil, or water [employer] threatened to shut off services in your [...] How often do you attend chur or rastafarian services? 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 Quezada that I am seeing today for symptomatic labia majora hypertrophy. This lady is also a massive weight loss patient and has significant issue with the discomfort with wearing underwear, chafing, labia actually falling out of the underwear or swimming suit. She tells me that intercourse was quite painful and make her avoid that to all cost to minimize discomfort. Past medical history significant for breast augmentation and massive weight loss. On my exam today it is alert pleasant lady quite slender has skin laxity on the abdomen that does not bother her whatsoever. On the labia she has significant labia majora hypertrophy that completely covered hooding of the clitoral area as well as completely cover introitus. It is quite probably uncomfortable on exam as well. Assessment plan: I feel this lady will require significant reduction of labia majora. I should be able to do this in the local anesthetic with oral sedation I will plan to do significant excision andcarry out almost upside down V excision of both sides with W-plasty to avoid the scar contracture. That will hopefully reduce her symptoms. Will close this in the 3 layers and tacked the flaps using Vicryl and Vicryl Rapide patient understands she will need to refrain for intercourse at least 4 to 6 weeks. We talk about intercurrent difficulties that the location of the scarring brings with the bathing, sitting, walking, clothing and underwear selection. At this point we will obtain photographs, I will ask my business system consultant to obtain insurance preapproval. He will be local tissue rearrangement approximately 100 cm?? altogether. All questions answered, I will need office procedure time to 1 hour. Patient does understand I am going to retire very soon and follow-up will be assumed by Dr. Quezada and both patient and my partner happy with that. documented in this encounter Plan of Treatment Upcoming Encounters Date Type Department Care Team (Late st Contact Info) Description 01/19/2025 11:15 AM CDT Office Visit [facility] Plastic Surgery [address] [place] [phone] Sabi Jackson MBBS [address] [place] [address] documented as of this encounter Visit Diagnoses Diagnosis Hypertrophy of labia- Primary documented in this encounter Additional Health Concerns Infection Onset Date Last Indicated Resolved Time Influenza 11/18/2024 11/18/2024 11/28/2024 8:17 PM CDT documented as of this encounter Care Teams Cabin Furnishings Installer Relationship Specialty Start Date End Date Yazmin Mcintyre APRN [address] [place] [address] PCP - General Family Medicine 10/05/23 documented as of this encounter
--- OUTSIDE RECORDS SUMMARY | 2025-01-09 14:55 | XMS_ITS | Encounter Summary ---
Author Organization [facility] er Address [address] [place] [address] Care Team Providers Care Aviation Electrical Technician Name Role Phone Yazmin Mcintyre APRN Primary Care Provider Encounter Details Date Type Department Care Team (Latest Contact Info) Description 12/02/2024 12:00 PM CDT Clinical Support [facility] Plastic Surgery [address] [place] [address] [phone] Post-op pain (Primary Dx); Post-operative nausea and vomiting; Anticipatory anxiety; Prophylactic antibiotic; Hypertrophy of labia Social History Tobacco Use [...] from your doctor or pharmacy? Never 10/05/2024 [facility] Utilities Answer Date Recorded In the past 12 months has [facility] [employer] gas, oil, or water [employer] threatened to shut off services in your [...] Date Recorded PHQ-9 Total Score 0 12/02/2024 [facility] - Occupational Stress [...] place to sleep or slept in a alf (including now)? No 08/07/2023 Housing Stability Vital Sign Answer Nathan e Recorded In the last 12 months, was t here a time when you were not able to pay the mortgage or rent on time? No 10/05/2024 In the past 12 months, how m any times have you moved where you were living? 0 10/05/2024 At any time in the past 12 m [facility], were you homeless or living in a alf (including now)? 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 Your healthcare provider may also give you more specific instructions. Morning of the procedure Eat a good breakfast or lunch. Take a shower and shampoo your hair the morning of procedure. Wear loose, comfortable, front-closure clothing. Do not wear makeup, deodorant, lotion, or jewelry. Do not shave. If you take control pills, you will need to use a different method of control until your next cycle. Discontinue on: These are the following medications prescribed for the procedure. Please bring medications with you to the procedure. Please take medications with food. diazepam (Valium): Take one hour before procedure. roxicodone (Oxycodone): Take one tablet, one hour before procedure. The remaining tablets, take one tablet every 4 hours, as needed, for moderate to severe pain. cefuroxime (Ceftin): Take one tablet, one hour before procedure. Take the second tablet before bed,day or procedure. lorazepam (Ativan): The Surgeon will instruct you when to take these the day of your procedure. ondansetron (Zofran): This is taken after the procedure. One tablet every 8 hours, as needed, for nausea. Please arrange for someone to drive you to and from the clinic procedure appointment and remain with you the first 24 hours after procedure. Wear loose fitting clothing and cotton underwear. Bring compression biker shorts. After your procedure: You will need: ice packs Tucks alexander bottle vaginal rest. Take pain medication as prescribed by your healthcare provider. Your stitches will dissolve on their own in about one to two weeks after the procedure. Vaginal rest for 6 weeks after the procedure. No sexual intercourse for 6 weeks after the procedure. Irritants to avoid: Perfumed soaps/no bubble baths Nylon underwear/thongs Sweat and urine Talcum powder Douches Feminine hygiene products Scented products and toilet paper Call if you have the following: Difficulty urinating Fever over 101.5 degrees or chills Pain or swelling that cannot be managed with your prescribed pain medication. Bad smelling drainage. Excess swelling Thursday - Thursday 8:00 AM - 5:00 PM at [phone]. After hours Emergency Room [phone] documented in this encounter Progress Notes * Vera Mahoney RN - 12/02/2024 12:00 PM CDT Pre-Operative Teaching Procedure: in-office labiamajora reduction Surgeon: Harper Date of Surgery: 12-06-24 Jayy Instructions: No ASA avoidance sheet: Yes Pre-Op Medications: Current Outpatient Medications on File Prior to Visit Medication Sig Dispense Refill albuterol HFA (Ventolin HFA) 108 (90 Base) MCG/ACT inhaler Inhale 2 puffs every 4 (four) hours if needed for wheezing or shortness of breath 18 g 0 buPROPion XL (WELLBUTRIN XL) 300 MG 24 hr tablet Take 1 tablet (300 mg total) by mouth at bed time On file. 90 tablet 3 busPIRone (BUSPAR) 5 MG tablet Take 1 tablet (5 mg total) by mouth 1 (one) time each day 30 tablet 1 lamoTRIgine (LaMICtal) 100 MG tablet Take 2 tablets (200 mg total) by mouth 2 (two) times a day On file 360 tablet 3 traZODone (DESYREL) 100 MG tablet Take 3 tablets (300 mg total) by mouth at night if needed for sleep On file. 270 tablet 3 valACYclovir (Valtrex) 500 MG tablet Take 1 tablet (500 mg total) by mouth 1 (one) time each day Onfile. 90 tablet 3 No current facility-administered medications on file prior to visit. Post-Op Medications: Oxy, zofran, valium, ativan, ceftin Photography Completed: Yes History AND Physical: na Pre-Op Testing: Blood Work: na EKG: No Chest Xray: No Mammogram: No Post-Op Compression Stockings Yes, biker shorts, or compression bottoms Garments: No The following information has been reviewed: call for scheduled OR time brochure, meals on wheels driver, consent signed, signs/symptoms reviewed, and contact phone numbers EDGAR Drain Care: na Wound Care: discussed Activity Restrictions: discussed Comments: will set up myChart. Will call if questions arise. Post-Op Appointment: 6 weeks. Business office has been notified; patient verbalized understanding. * Vera Mahoney RN - 12/02/2024 12:00 PM CDT Nurse Note Per Harper, during procedure, he would like 20cc of local. 2-0 PDS, 3-0 vicryl and 4-0 Rapide. documented in this encounter Plan of Treatment Upcoming Encounters Date Type Department Care Team (Late st Contact Info) Description 01/19/2025 11:15 AM CDT Office Visit [facility] Plastic Surgery [address] [place] [phone] Sabi Jackson MBBS [address] [place] [address] documented as of this encounter Visit Diagnoses Diagnosis Post-op pain- Primary Other acute postoperative pain Post-operative nausea and vomiting Nausea with vomiting Anticipatory anxiety Prophylactic antibiotic Encounter for long-term (current) use of antibiotics Hypertrophy of labia documented in this encounter Care Teams Aviation Electrical Technician Relationship Specialty Start Date End Date Yazmin Mcintyre APRN [address] [place] [phone] PCP - General Family Medicine 10/05/23 documented as of this encounter
--- OUTSIDE RECORDS SUMMARY | 2025-01-09 14:56 | XMS_ITS | Encounter Summary ---
Author Organization [facility] er Address [address] [place] [address] Care Team Providers Care Fight Manager Name Role Phone Yazmin Mcintyre APRN Primary Care Provider Reason for Visit * Prior Authorization (Routine) - Authorized Specialty Diagnoses / Procedures Referred By Bimal pla Referred To Contact Plastic Surgery Diagnoses LABIAMAJORA RED. Procedures PLASTICS PROCEDURE MISC 60 [facility] Plastic Surgery [address] [place] [address] Phone: tel: fax: Guanaco Saleem MD [address] [place] [phone] Phone: tel: fax: Referral ID Status Reason Start Date Expiration Date V isits Requested Visits Authorized [id number] Authorized 12/09/2024 12/09/2025 1 1 Encounter Details Date Type Department Care Team (Late st Contact Info) Description 12/09/2024 12:00 PM CDT Office Visit [facility] Plastic Surgery [address] [place] [address] [phone] Guanaco Saleem MD [address] [place] [phone] Hypertrophy of labia (Primary Dx) Social [...] from your doctor or pharmacy? Never 10/05/2024 [facility] Utilities Answer Date Recorded In the past 12 months has e [employer], gas, oil, or water [employer] threatened to shut off services in [...] often do you attend chur ch or caodaism services? 1 to 4 times per year 10/05/2024 Do you belong to any clubs o r organizations such as advent groups, unions, fraternal or athletic groups, or [...] Date Recorded PHQ-9 Total Score 0 12/02/2024 [facility] - Occupational [...] place to sleep or slept in a residential (including now)? No 08/07/2023 Housing Stability Vital Sign Answer Nathan e Recorded In the last 12 months, was t here a time when you were not able to pay the mortgage or rent on time? No 10/05/2024 In the past 12 months, how m any times have you moved where you were living? 0 10/05/2024 At any time in the past 12 m [facility], were you homeless or living in a residential (including now)? 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 Gender Identity Not on file Sexual Orientation Not on file documented as of this encounter Last Filed Vital Signs Vital Sign Reading Time Taken Comments Blood Pressure 102/57 12/09/2024 1:16 PM CDT Pulse 66 12/09/2024 1:16 PM CDT Temperature 36.9 C (98.4 F) 12/09/2024 12:00 PM CDT Respiratory Rate - - Oxygen Saturation 100% 12/09/2024 1:16 PM CDT Inhaled Oxygen Concentration - - Weight - - Height - - Body Mass Index - - documented in this encounter Progress Notes * Vera Mahoney RN - 12/09/2024 12:00 PM CDT In-Office Procedure Procedure time-out completed: yes Name, allergies and procedures reviewed: yes Verification of artificial joints, heart valve replacement, pacemaker? Yes VS documented in flow sheet. 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 Pre-Procedure medication: Valium 5mg and ceftin taken at 1100. Ativan 2mg taken upon arrival at appointment. Procedure start time: 1210 Procedure end time: 1304 Staff assisting in procedure: MEHNAZ Graves assisting; MEHNAZ [employer] sales executive Patient tolerated procedure: well Dressing placed: alexander ice pack Procedure garment:Compression garment Departure condition: Patient denies dizziness and lightheadedness. Ambulated to lobby fine. Instructed to take 5mg Oxy and 1,000mg tylenol and put on spandex pants/shorts as soon as she gets home. Patient verbalized understanding. * Guanaco Saleem MD - 12/09/2024 12:00 PM CDT Procedure Note Diagnosis: Labia majora hypertrophy Procedure: Labia majora reduction Patient prepped draped you sterile fashion, total of 20 cc of 1% Xylocaine with epinephrine used toinject the area. Upside down Y incision was designed as well as I plan to use already existing scar to obtain vertical elevation. 10 blade is used to make incision through the scar and then dissection carried with electrocautery inferiorly until we reached symphysis pubis. Mons p ubis flap was split and the have to estimate amount to be removed. That was tacked in place with a 2-0 PDS. Reminder of the mons pubis superior and was removed and that [place] with 2-0 PDS. Aftertest completed we redraw the labia excision and I was carried for approximately 2.5 cm in width going all the way to the posterior frenulum. That was excised using 10 blade. We tried to save as much of the fatty tissue as possible for padding. Skin flaps were tacked in place with 3-0 Vicryl for deep stitches. Skin close in all 3 incisions with 4 of Vicryl Rapide. Good coaptation obtained, dressing, patient tolerated procedure well. documented in this encounter Plan of Treatment Upcoming Encounters Date Type Department Care Team (Late st Contact Info) Description 01/19/2025 11:15 AM CDT Office Visit [facility] Plastic Surgery [address] [place] [address] [phone] Sabi Jackson MBBS [address] [place] [phone] documented as of this encounter Visit Diagnoses Diagnosis Hypertrophy of labia- Primary documented in this encounter Care Teams Fight Manager Relationship Specialty Start Date End Date Yazmin Mcintyre APRN [address] [place] [phone] PCP - General Family Medicine 10/05/23 documented as of this encounter
--- OUTSIDE RECORDS SUMMARY | 2025-01-09 14:56 | XMS_ITS | Referral Summary ---
Author Organization [facility] Address [address] [facility] [place] [address] Care Team Providers Care Chemistry Laboratory Technician Name Role Phone Hemant Mijares MD Primary Care Provider [phone] Christine Davila Pharm D Unavailable [phone] Allergies Active Allergy Reactions Criticality Noted Date Comments Erythromycin Other 09/05/2016 Stomach ache Metformin 05/29/2022 Medications ibuprofen 800 mg oral tablet Take 800 mg by mouth. 1 Active acetaminophen (TYLENOL) 500 mg oral tablet Take 1,000 mg by mouth. 1 Active buPROPion XL (WELLBUTRIN XL) 150 mg oral extended release tablet 24 HRIndications:MDD (major depressive disorder), recurrent episode, moderate (HCC) Take 1 tablet (150 mg) by mouth once daily. Take along with a 300mg tablet for a total dose of 450mg per day. 90 tablet 3 3 Active buPROPion (WELLBUTRIN XL) 300 mg oral extended release tablet 24 HRIndications:MDD (major depressive disorder), recurrent episode, moderate (HCC) Take 1 tablet (300 mg) by mouth once daily. Take along with a 150mg tablet for a total dose of 450mg per day. 90 tablet 3 3 Active venlafaxine ER (EFFEXOR XR) 150 mg oral extended release capsule 24 HRIndications:MDD (major depressive disorder), recurrent episode, moderate (HCC) Take 2 capsules (300 mg) by mouth once daily. 90 capsule 3 3 Active propranoloL (INDERAL LA) 60 mg oral extended release capsule 24 HR Take 1 capsule (60 mg) by mouth once daily. 90 capsule 3 3 Active traZODone (DESYREL) 100 mg oral tabletIndications :Insomnia, unspecified type Take 3 tablets (300 mg) by mouth at bedtime. 90 tablet 3 3 Active oxyBUTYnin chloride (DITROPAN XL) 10 mg oral extended release tablet 24 HR Take 1 tablet (10 mg) by mouth once daily. 90 tablet 3 3 Active oxyBUTYnin Chloride 15 mg oral extended release tablet 24 HRIndications:Mix ed stress and urge urinary incontinence Take 1 tablet (15 mg) by mouth at bedtime. 90 tablet 3 3 Active lamoTRIgine (LAMICTAL) 100 mg oral tabletIndications :Bipolar 2 disorder (HCC) Take 2 tablets (200 mg) by mouth once daily. 180 tablet 3 3 Active semaglutide (WEGOVY) 0.25 mg/0.5 mL SubQ pen injectorIndicatio ns:Obesity (BMI 30-39.9) Inject 0.5 mL (0.25 mg) under the skin every 7 (seven) days. 2 mL 3 Active Active Problems Problem Noted Date Diagnosed Date Mixed stress and urge urinary incontinence 01/26 Abnormal Pap smear of cervix 07/04/2021 Overview (07/04/2021): Endometrial cells on Pap SOSA (generalized anxiety disorder) 06/09/2016 History of alcohol abuse 06/09/2016 Overview (07/06/2017): Overview: x9 yrs when to second , rare alcohol use now History of suicide attempt 06/09/2016 Overview (07/06/2017): Overview: Medication overdose, 2009, hospitalized at [place] Binge eating disorder 06/09/2016 Prediabetes 06/02/2016 Carpal tunnel syndrome, bilateral 11/05/2015 Depression with anxiety 11/05/2015 Obstructive sleep apnea syndrome 11/05/2015 Bipolar 2 disorder 10/29/2015 Status post bariatric surgery 11/29/2010 Overview (07/06/2017): Overview: S/p gastric band 11/2010 ; LAP GASTRIC BANDING (APS) Esophageal reflux 08/23/2010 Overview (07/06/2017): Overview: Gastroesophageal Reflux Disease Hyperlipidemia 08/23/2010 Obesity (BMI 30-39.9) 08/23/2010 Overview (07/06/2017): Overview: Obesity Morbid Calculus of kidney 08/23/2010 Overview (07/06/2017): Overview: Nephrolithiasis Resolved Problems Problem Noted Date Diagnosed Date Resolved Date Bipolar affective disorder, currently depressed, moderate 06/09/2016 07/06/2017 Overview (07/06/2017): Overview: [facility] in [place], Dr. Cami Madrid ([phone]) Hyperlipemia 10/31/2015 07/06/2017 Obesity, morbid, BMI 40.0-49.9 10/29/2015 07/06/2017 Acne vulgaris 10/29/2015 07/06/2017 Anxiety 10/29/2015 07/06/2017 Obstructive sleep apnea 08/23/201006/09 Overview (07/06/2017): Overview: AutoPAP 5-20 cmH20 per patient, not currently wearing CPAP per patient Immunizations Name Administration Dates Next Due Hep B Adult 10/29/2015,07/18/2002 Influenza recombinant (FluBl ok Quadrivalent PF) 10/01/2020,11/22/2018,07/14/2015,2008 Influenza split virus quadrivalent 06/03,05/06/2017,05/10/2016,2012,10/13/2011,08/08/2010,07/23/2007 Pfizer 12+ Yrs Monovalent CO VID Vaccine (purple cap) 12/26/2020,12/05/2020 Tdap 11/22/2018,08/16/2008 Zoster Recombinant 08/18/2022,05/29/2022 Social History Tobacco Use Types Packs/Day Years Used Date Smoking Tobacco: Never Smokeless Tobacco: Never Tobacco Cessation:Counseling Given: Not Answered Alcohol Use Standard Drinks/Week Comments Yes 0 (1 standard drink = 0.6 oz pur e alcohol) 4-5 white claws on the weekend PHQ-2 Answer Date Recorded PHQ9 Total Score, calculated 0 Comments No Sex and Gender Information Value Date Recorded Sex Assigned at Not on file Legal Sex Female 6:34 AM CDT Gender Identity Not on file Sexual Orientation Not on file Last Filed Vital Signs Vital Sign Reading Time Taken Comments Blood Pressure 98/60 01/26/2023 11:21 AM CDT Pulse 74 01/26/2023 11:21 AM CDT Temperature 36.1 C (97 F) 05/29/2022 11:26 AM CDT Respiratory Rate 18 01/26/2023 11:21 AM CDT Oxygen Saturation 95% 01/26/2023 11:21 AM CDT Inhaled Oxygen Concentration - - Weight 88.1 kg (194 lb 3.2 oz) 01/26/2023 11:21 AM CDT Height 154.9 cm (5' 1) 01/26/2023 11:21 AM CDT Body Mass Index 36.69 01/26/2023 11:21 AM CDT Plan of Treatment Not on file Procedures Procedure Name Priority Date/Time Associated Diagnosis Comments LIPID PANEL ([facility]) Routine 01/26/2023 11:51 AM CDT Hyperlipidemia, unspecified hyperlipidemia type ROLLED OATS MILL OPERATOR PAP/APTIMA HPV W/REFLEX TO HPV GENOTYPES ([facility]) Routine 01/26/2023 11:30 AM CDT Screening for cervical cancer MAMMO DIGITAL SCREENING BI Routine 06/24/2022 5:12 PM CDT Encounter for screening for malignant neoplasm of breast, unspecified screening modality HCV ANTIBODY ([facility]) Routine 05/29/2022 12:01 PM CDT Encounter for hepatitis C screening test for low risk patient from Last 3 Months or Most Recently Relevant to Health Maintenance Results * (ABNORMAL) LIPID PANEL ([facility]) (01/26/2023 11:51 AM CDT) Cholesterol ([facility]) 225(H) 100 - 199 mg/dL 01/27/2023 8:10 AM CDT [facility] Triglycerides ([facility]) 103 0 - 149 mg/dL 01/27/2023 8:10 AM CDT [facility] HDL Cholesterol ([facility]) 56 >39 mg/dL 01/27/2023 8:10 AM CDT [facility] VLDL Cholesterol Eamon ([facility]) 18 5 - 40 mg/dL 01/27/2023 8:10 AM CDT [facility] LDL Cholesterol Calc - NIH ([facility]) 151(H) 0 - 99 mg/dL 01/27/2023 8:10 AM CDT [facility] Blood Venipuncture / Unknown 01/26/2023 11:51 AM CDT 01/26/2023 11:52 AM CDT Narrative [facility] - 01/27/2023 8:10 AM CDT Performed at: - [address] [id number] Superintendent Electric Power: Mateo Collins MD, Phone: [phone] us Elena King PA-C [facility] ORDERABLES Final Re sult [facility] [address] [id number] * ROLLED OATS MILL OPERATOR PAP/APTIMA HPV W/REFLEX TO HPV GENOTYPES ([facility]) (01/26/2023 11:30 AM CDT) Pathologist [facility] Diagnosis: ([facility]) Comment 01/06 3:07 PM CDT [facility] Comment:NEGATIVE FOR INTRAEP ITHELIAL LESION OR MALIGNANCY.THIS SPECIMEN WAS RESCREENED PART OF OUR CARDIOVASCULAR LAB DIRECTOR PROGRAM. Specimen Adequacy: ([facility]) Comment 02/01/2023 3:07 PM CDT [facility] Comment:Satisfactory for ry luation. Endocervical and/or squamous metaplasticcells (endocervical component) are present. Clinician Provided ICD10: ([facility]) Comment 02/01/2023 3:07 PM CDT [facility] Comment:Z12.4 Performed by: Comment 02/01/2023 3:07 PM CDT [facility] Comment:Ladi Burger, Cy totechnologist ([facility]) QC Reviewed by: ([facility]) Comment 02/01/2023 3:07 PM CDT [facility] Comment:Triston Salcido, Cytotechno logist ([facility]) Cyto Comments ([facility]) . 02/01/2023 3:07 PM CDT [facility] Note: ([facility]) Comment 3:07 PM CDT [facility] Comment: The Pap smear is a screening test designed to aid in the detection of premalignant and malignant conditions of the uterine cervix. It is not a diagnostic procedure and should not be used as the sole means of detecting cervical cancer. Both false-positive and false-negative reports do occur. HPV Aptima ([facility]) Negative Negative 01/06 3:07 PM CDT [facility] Comment:This nucleic acid am plification test detects fourteen high-riskHPV types (16,18,31,33,35,39,45,51,52,56,58,59,66,68) withoutdifferentiation. HPV Genotype Reflex ([facility]) Comment 02/01/2023 3:07 PM CDT [facility] Comment:Criteria not met, HP V Genotype not performed. Test Methodology ([facility]) Comment 02/01/2023 3:07 PM T [facility] Comment:This liquid based Th inPrep(R) pap test was screened with theuse of an image guided system. Pap 01/26/2023 11:3 0 AM CDT 01/26/2023 11:52 AM CDT [facility] - 02/01/2023 3:07 PM CDT Specimen Comment: [id number] Specimen Comment: Source.............Cervix Specimen Comment: LMP / Prev Treat...None Specimen Comment: Other..............Post Menopausal Specimen Comment: No. of containers..01 ThinPrep Vial Performed at: 01 - [facility] [place] [address], [place], [place] [id number] Superintendent Electric Power: Mateo Collins MD, Phone: [phone] Performed at: 02 - [facility] [place] [address], [place], [place] [id number] Superintendent Electric Power: Mateo Collins MD, Phone: [phone] us Elena King PA-C [facility] ORDERABLES Final Re sult [facility] [address] [place] [address] * MAMMO DIGITAL SCREENING BI (06/24/2022 5:12 PM CDT) Anatomical Region Laterality Modality Breast Bilateral Mammography Impressions 06/24/2022 5:25 PM CDT : There is no mammographic evidence of malignancy. RECOMMENDATION: - A screening mammogram in 1 year. BI-RADS: Overall: 2 - Benign The patient will be notified of the results. REPORT SIGNED BY Elena Alcaraz MD Narrative 06/24/2022 5:25 PM CDT EXAM: MAMMO DIGITAL SCREENING BI REASON FOR EXAM: Routine screening mammogram COMPARISON: Compared to: 11/23/2018 MAMMO ([facility]) DIGITAL SCREENING BI, 09/14/2012 MG - MAMMO OUTSIDE STUDY, and 09/20/2009 MG - MAMMO OUTSIDE STUDY TECHNIQUE: Craniocaudal and oblique digital views were obtained. Current study was evaluated with Computer Aided Detection (CAD) system. FINDINGS: The breasts are almost entirely fatty. Stable benign intramammary lymph node in the right breast. No significant masses, calcifications, or other findings are seen. There has been no significant interval change. us Hemant Mijares MD MAMMO ORDERABLE Final Result * HCV ANTIBODY ([facility]) (05/29/2022 12:01 PM CDT) Hepatitis C Virus Antibody ([facility]) <0.1 0.0 - 0.9 s/co ratio 05/30/2022 11:08 AM CDT [facility] Comment: Negative: < 0.8 Indeterminate: 0.8 - 0.9 Positive: > 0.9 HCV antibody alone does not differentiate between previous resolved infection and active infection. The CDC and current clinical guidelines recommend that a positive HCV antibody result be followed up with an HCV RNA test to support the diagnosis of acute HCV infection. [facility] offers Hepatitis C Virus (HCV) RNA, Diagnosis, BETTY (747450) and Hepatitis C Virus (HCV) Antibody with reflex to Quantitative Real-time PCR ([id number]). Blood Venipuncture / Unknown 05/29/2022 12:01 PM CDT 05/29/2022 12:01 PM CDT Narrative [facility] - 05/30/2022 11:08 AM CDT Performed at: [id number] [place], [place] [id number] Superintendent Electric Power: Mateo Collins MD, Phone: [phone] Hemant Mijares MD [facility] ORDERABLES Final Result Performing Organization Address City/State/[facility] Co de Phone Number [facility] [address] [place] [id number] from Last 3 Months or Most Recently Relevant to Health Maintenance Insurance [id number] [place] [id number] [employer] [address] [place] [id number] [place] [id number] [place] [id number] [place] [id number] [employer] [id number] [place] [id number] Care Teams Chemistry Laboratory Technician Relationship Specialty Start Date End Date Hemant Mijares MD PCP - General Family Medicine 10/14/22 Christine Davila, Pharm D [address] [facility] [address] [place] [address] Pharmacist Clinician 01/30/23
--- OUTSIDE RECORDS SUMMARY | 2025-01-09 14:56 | XMS_ITS | Clinical Summary ---
Author Organization [facility] Address [address] [place] [address] Care Team Providers Care Skilled Nursing Facility Counselor Name Role Phone Hemant Mijares MD Primary Care Provider [phone] Christine Davila Pharm D Unavailable [phone] Allergies Active Allergy Reactions Criticality Noted Date [...] (07/06/2017): Overview: Medication overdose, 2009, hospitalized at [place] Binge eating disorder 06/09/2016 Prediabetes 06/02/2016 Carpal [...] depressed, moderate 06/09/2016 07/06/2017 Overview (07/06/2017): Overview: [facility] in [place], Dr. Cami Madrid ([phone]) Hyperlipemia 10/31/2015 07/06/2017 Obesity, morbid, BMI 40.0-49.9 [...] cap) 12/26/2020,12/05/2020 Tdap 11/22/2018,08/16/2008 Zoster Recombinant 08/18/2022,05/29/2022 Family History Medical History Relation Comments Colon Cancer Brother No Known Problems Father Lung Cancer Mother Colon Cancer Paternal Grandmother Relation Status Comments Brother Father Mother Paternal Grandmother Social History Tobacco Use Types Packs/Day Years [...] 01/26/2023 11:21 AM CDT Plan of Treatment Health Maintenance Due Date Last Done Comments Anxiety Follow-Up (SOSA-7) 1961 Depression Follow-Up (PHQ-9) 1961 Pneumococcal 50+ Years (1 of 1 - PCV) 2012 Yearly Review of HCD 01/26/2024 01/26/2023, 09/11/2021, 12/04/2020, Additional history exists Lipid Screening 01/27/2024 01/26/2023, 05/09, 10/01/2020, Additional history exists COVID-19 Vaccine ( season) 2024 12/26/2020, 12/05/2020 Mammogram Screening 06/24/2024 06/24/2022, 9 Influenza Vaccine (Season Ended) 2025 10/01/2020, 06/03/2019, 11/22/2018, Additional history exists Pap Smear 01/27/2028 01/26/2023, 11/0 02/2017, 03/17/2001, Additional history exists Adult Tetanus Booster 11/22/2028 11/22/2018, 008 Colonoscopy 11/07/2030 11/07/2020 RSV Vaccines (1 - 1-dose 75+ series) 2037 Hepatitis C Screening Completed 05/29/2022 Zoster Vaccine Completed 08/18/2022, 05/29/2022 Pneumococcal Vaccine Aged Out No long er eligible based on patient's age to complete this topic Procedures Procedure Name Priority Date/Time Associated Diagnosis Comments LIPID PANEL ([facility]) Routine 01/26/2023 11:51 AM CDT Hyperlipidemia, unspecified hyperlipidemia type 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 REPAIR 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 PAP/APTIMA HPV W/REFLEX TO HPV GENOTYPES ([facility]) [...] - 199 mg/dL 01/27/2023 8:10 AM CDT [facility] Triglycerides ([facility]) 103 0 - 149 mg/dL 01/27/2023 8:10 AM CDT [facility] HDL Cholesterol ([facility]) 56 >39 mg/dL 01/27/2023 8:10 AM CDT [facility] VLDL Cholesterol Eamon ([facility]) 18 5 - 40 mg/dL 01/27/2023 8:10 AM CDT [facility] LDL Cholesterol Calc - NIH ([facility]) 151(H) 0 - 99 mg/dL 01/27/2023 8:10 AM CDT [facility] Blood Venipuncture / Unknown 01/26/2023 11:51 AM CDT 01/26/2023 11:52 AM CDT Narrative [facility] - 01/27/2023 8:10 AM CDT Performed at: 01 - [address] [id number] Customer Complaint Clerk: Mateo Collins MD, Phone: [phone] us Elena King PA-C [facility] ORDERABLES Final Re sult [facility] [address] [place] [phone] * MOLD REPAIR TECHNICIAN PAP/APTIMA HPV W/REFLEX TO HPV GENOTYPES ([facility]) (01/26/2023 11:30 AM CDT) Diagnosis: ([facility]) Comment 01/06 3:07 PM CDT [facility] Comment:NEGATIVE FOR INTRAEP ITHELIAL LESION OR MALIGNANCY.THIS SPECIMEN WAS RESCREENED PART OF OUR PANAMA HAT SMEARER PROGRAM. Specimen Adequacy: ([facility]) Comment 02/01/2023 3:07 PM CDT [facility] Comment:Satisfactory for ry luation. Endocervical and/or squamous metaplasticcells (endocervical component) are present. Clinician Provided ICD10: ([facility]) Comment 02/01/2023 3:07 PM CDT [facility] Comment:Z12.4 Performed by: Comment 02/01/2023 3:07 PM CDT [facility] Comment:Ladi Burger, Cy totechnologist ([facility]) QC Reviewed by: ([facility]) Comment 02/01/2023 3:07 PM CDT [facility] Comment:Triston Salcido, Cytotechno logist ([facility]) Cyto Comments ([facility]) . 02/01/2023 3:07 PM CDT [facility] Note: ([facility]) Comment 3:07 PM CDT [facility] Comment: The Pap smear is a screening test designed to aid in the detection of premalignant and malignant conditions of the uterine cervix. It is not a diagnostic procedure and should not be used as the sole means of detecting cervical cancer. Both false-positive and false-negative reports do occur. HPV Aptima ([facility]) Negative Negative 01/06 3:07 PM CDT [facility] Comment:This nucleic acid am plification test detects fourteen high-riskHPV types (16,18,31,33,35,39,45,51,52,56,58,59,66,68) withoutdifferentiation. HPV Genotype Reflex ([facility]) Comment 02/01/2023 3:07 PM CDT [facility] Comment:Criteria not met, HP V Genotype not performed. Test Methodology ([facility]) Comment 02/01/2023 3:07 PM CDT [facility] Comment:This liquid based Th inPrep(R) pap test was screened with theuse of an image guided system. Pap 01/26/2023 11:3 0 AM CDT 01/26/2023 11:52 AM CDT Narrative [facility] - 02/01/2023 3:07 PM CDT Specimen Comment: [id number] Specimen Comment: Source.............Cervix Specimen Comment: LMP / Prev Treat...None Specimen Comment: Other..............Post Menopausal Specimen Comment: No. of containers..01 ThinPrep Vial Performed at: 01 - [facility] [place] [address] [place] [address], [place], [place] [id number] Customer Complaint Clerk: Mateo Collins MD, Phone: [phone] Performed at: 02 - [facility] [place] [address] [place] [address] [address], [place], [place] [id number] Customer Complaint Clerk: Mateo Collins MD, Phone: [phone] us Elena King PA-C [facility] ORDERABLES Final Re sult [facility] [address] [place] [address] * MAMMO DIGITAL SCREENING BI (06/24/2022 5:12 [...] screening mammogram COMPARISON: Compared to: 11/23/2018 MAMMO ([facility]) DIGITAL SCREENING BI, 09/14/2012 [facility] - MAMMO [...] There has been no significant interval change. Hemant Mijares MD MAMMO ORDERABLE Final Result * HCV ANTIBODY ([facility]) (05/29/2022 12:01 PM CDT) [facility]atitis [facility] <0.1 0.0 - 0.9 s/co ratio 05/30/2022 11:08 AM CDT [facility] Comment: Negative: < 0.8 Indeterminate: 0.8 - 0.9 Positive: > 0.9 HCV antibody alone does not differentiate between previous resolved infection and active infection. The CDC and current clinical guidelines recommend that a positive HCV antibody result be followed up with an HCV RNA test to support the diagnosis of acute HCV infection. [facility] offers Hepatitis C Virus (HCV) RNA, Diagnosis, BETTY (581853) and Hepatitis C Virus (HCV) Antibody with reflex to Quantitative Real-time PCR ([id number]). Blood Venipuncture / Unknown 05/29/2022 12:01 PM CDT 05/29/2022 12:01 PM CDT Narrative [facility] - 05/30/2022 11:08 AM CDT Performed at: - [facility] [address] [id number] Customer Complaint Clerk: Mateo Collins MD, Phone: [phone] us Hemant Mijares MD [facility] ORDERABLES Final Result [facility] [address] [place] [address] from Last 3 Months or Most Recently Relevant to Health Maintenance Insurance [id number] [place] [id number] [employer] [address] [place] [id number] [place] [id number] [place] [id number] [place] [id number] [employer] [address] [place] [id number] Care Teams Skilled Nursing Facility Counselor Relationship Specialty Start Date End Date Hemant Mijares MD PCP - General Family Medicine 10/14/22 Christine Davila, Pharm D [address] [place] [address] Pharmacist Clinician 01/30/23
--- OUTSIDE RECORDS SUMMARY | 2025-01-09 14:56 | XMS_ITS | Encounter Summary ---
Author Organization [facility] Address [address] [place] [address] Care Team Providers Care Named Account Executive Name Role Phone Yazmin Mcintyre CREDIT CHARGE AUTHORIZER Primary Care Provider Encounter Details Date Type Department Care Team ([facility] st Contact Info) Description 12/06/2024 Telephone Family Medicine 4th Floor [address] [place] [address] Yazmin Mcintyre CREDIT CHARGE AUTHORIZER [address] [place], [place] [id number] Social History Tobacco Use Types Packs/Day Years [...] from your doctor or pharmacy? Never 10/05/2024 [facility] Utilities Answer Date Recorded In the past 12 months has e [employer], gas, oil, or water [employer] threatened to shut off services in your [...] How often do you attend chur or holiness services? 1 to 4 times per year 10/05/2024 Do you belong to any clubs o r organizations such as muslim groups, unions, fraternal or athletic groups, or [...] Date Recorded PHQ-9 Total Score 0 12/02/2024 [facility] - Occupational Stress [...] place to sleep or slept in a mcc (including now)? No 08/07/2023 Housing Stability Vital Sign Answer Nathan e Recorded In the last 12 months, was t here a time when you were not able to pay the mortgage or rent on time? No 10/05/2024 In the past 12 months, how m any times have you moved where you were living? 0 10/05/2024 At any time in the past 12 m [facility], were you homeless or living in a mcc (including now)? No 10/05/2024 Interpersonal Safety Questionnaire Answer Date Recorded How often does anyone, alida zimmer family and friends, physically hurt you? Never 10/05/2024 How often does anyone, alida zimmre family and friends, insult or talk down to you? Never 10/05/2024 How often does anyone, alida zimmer family and friends, threaten you with harm? Never 10/05/2024 How often does anyone, alida zimmer family and friends, threaten you with harm? Never 10/05/2024 Comments No Sex and Gender Information Value Date Recorded Sex Assigned at Not on file Legal Sex Female 1:34 PM TIRE TRIMMER HAND Gender Identity Not on file Sexual Orientation Not on file documented as of this encounter Miscellaneous Notes * Telephone Encounter - Ida Renae MA - 12/06/2024 10:55 AM CDT Made in error. documented in this encounter Plan of Treatment Upcoming Encounters Date Type Department Care Team (Late st Contact Info) Description 01/19/2025 11:15 AM CDT Office Visit [facility] Plastic Surgery [address] [place] [phone] Sabi Jackson MBBS [address] [place] [phone] documented as of this encounter Visit Diagnoses Not on filedocumented in this encounter Care Teams Named Account Executive Relationship Specialty Start Date End Date Yazmin Mcintyre APRN [address] [place] [id number] PCP - General Family Medicine 10/05/23 documented as of this encounter
--- OUTSIDE RECORDS SUMMARY | 2025-01-09 14:56 | XMS_ITS | Encounter Summary ---
Author Organization [facility] er Address [address] [place] [id number] Care Team Providers Care Electronic Component Processor Name Role Phone Yamzin Mcintyre APRN Primary Care Provider Reason for Visit * Reason Comments Med Refill Encounter Details Date Type Department Care Team (Late st Contact Info) Description 10/22/2024 Refill [place] [address] [place] [address] Yazmin Mcintyre MACHINES TECHNICIAN [address] [place] [phone] Herpes simplex infection of genitourinary system Social History Tobacco Use Types Packs/Day Years Used Date Smoking Tobacco: Never Passive Smoke Exposure: Never Smokeless Tobacco: Never Alcohol Use Standard Drinks/Week Comments Not Currently 0 (1 standard drink = 0.6 oz pur e alcohol) B1300 Health Literacy Answer Date Recor ded How often do you need to hav e someone help you when you read instructions, pamphlets, or other written material from your doctor or pharmacy? Never 10/05/2024 [facility] Utilities Answer Date Recorded In the past 12 months has e [employer], gas, oil, or water [employer] threatened to shut off services in your [...] How often do you attend chur or druze services? 1 to 4 times per year 10/05/2024 Do you belong to any clubs o r organizations such as hoahaoism groups, unions, fraternal or athletic groups, or [...] Date Recorded PHQ-9 Total Score 3 10/05/2024 [facility] - Occupational Stress Questionnaire Answer Date [...] place to sleep or slept in a long-term (including now)? No 08/07/2023 Housing Stability Vital Sign Answer Nathan e Recorded In the last 12 months, was t here a time when you were not able to pay the mortgage or rent on time? No 10/05/2024 In the past 12 months, how m any times have you moved where you were living? 0 10/05/2024 At any time in the past 12 m [facility], were you homeless or living in a long-term (including now)? No 10/05/2024 Interpersonal Safety Questionnaire [...] on file Legal Sex Female 1:34 PM ELECTRICIAN OUTSIDE Gender Identity Not on file Sexual Orientation Not on file documented as of this encounter Miscellaneous Notes * Telephone Encounter - Miriam Arora LPN - 10/24/2024 7:33 AM CST Duplicate declined signed on 10-05-24 valACYclovir (Valtrex) 500 MG tablet [[id number]] Order Details Dose: 500 mg Route: Oral Frequency: Daily Dispense Quantity: 90 tablet Refills: 3 Sig: Take 1 tablet (500 mg total) by mouth 1 (one) time each day On file. Start Date: 10/05/24 End Date: 10/05/25 after 365 doses Written Date: 10/05/24 Expiration Date: 10/05/25 E-Prescribing Status: Receipt confirmed by pharmacy (10/05/2024 10:56 AM ELECTRICIAN OUTSIDE) TRICIAN OUTSIDE documented in this encounter Plan of Treatment Upcoming Encounters Date Type Department Care Team (Late st Contact Info) Description 01/19/2025 11:15 AM CDT Office Visit [facility] Plastic Surgery [address] [place] [id number] Sabi Jackson MBBS [address] [place] [phone] documented as of this encounter Visit Diagnoses Diagnosis Herpes simplex infection of genitourinary system documented in this encounter Additional Health Concerns Infection Onset Date Last Indicated Resolved Time COVID-19 Rule Out 11/18/2024 11/18/2024 11/18/2024 4:34 PM CDT Influenza 11/18/2024 11/18/2024 11/28/2024 8:17 PM CDT documented as of this encounter Care Teams Electronic Component Processor Relationship Specialty Start Date End Date Yazmin Mcintyre APRN [address] [place] [phone] PCP - General Family Medicine 10/05/23 documented as of this encounter
--- OUTSIDE RECORDS SUMMARY | 2025-01-09 14:56 | XMS_ITS | Encounter Summary ---
Author Organization [facility] er Address [address] [place] [address] Care Team Providers Care Enroller Name Role Phone Yazmin Mcintyre APRN Primary Care Provider Reason for Visit * Consultation (Routine) - Authorized Specialty Diagnoses / Procedures Referred By Bimal pal Referred To Contact Plastic Surgery Diagnoses Excess skin Yazmin Mcintyre APRN [address] [place] [address] Phone: tel: fax: Referral ID Status Reason Start Date Expiration Date Visits Requested Visits Authorized [id number] Authorized Specialty Services Required 11/18/2024 11/18/2025 1 1 Encounter Details Date Type Department Care Team (Late st Contact Info) Description 11/28/2024 9:30 AM CDT Office Visit [facility] Plastic Surgery [address] [place] [phone] Sabi Jackson MBBS [address] [place] [phone] Encounter for cosmetic procedure (Primary Dx) Social History Tobacco Use Types [...] from your doctor or pharmacy? Never 10/05/2024 [facility] Utilities Answer Date Recorded In the past 12 months has e [employer], gas, oil, or water [employer] threatened to shut off services in your [...] often do you attend chur ch or jehovah's witness services? 1 to 4 times per year 10/05/2024 Do you belong to any clubs o r organizations such as evangelical groups, unions, fraternal or athletic groups, or [...] Date Recorded PHQ-9 Total Score 3 10/05/2024 [facility] of Occupat ional Health - Occupational Stress [...] place to sleep or slept in a fdc (including now)? No 08/07/2023 Housing Stability Vital Sign Answer Nathan e Recorded In the last 12 months, was t here a time when you were not able to pay the mortgage or rent on time? No 10/05/2024 In the past 12 months, how m any times have you moved where you were living? 0 10/05/2024 At any time in the past 12 m onths, were you homeless or living in a fdc (including now)? No 10/05/2024 Interpersonal Safety Questionnaire Answer Date Recorded How often does anyone, inclu ding family and friends, physically hurt you? 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 Gender Identity Not on file Sexual Orientation Not on file documented as of this encounter Last Filed Vital Signs Vital Sign Reading Time Taken Comments Blood Pressure 95/71 11/28/2024 9:37 AM CDT Pulse 73 11/28/2024 9:37 AM CDT Temperature 36.4 C (97.6 F) 11/28/2024 9:37 AM CDT Respiratory Rate - - Oxygen Saturation 98% 11/28/2024 9:37 AM CDT Inhaled Oxygen Concentration - - Weight 48.4 kg (106 lb 11.2 oz) 11/28/2024 9:37 AM CDT Height 157.5 cm (5' 2.01) 11/28/2024 9:37 AM CD T Body Mass Index 19.51 11/28/2024 9:37 AM CDT documented in this encounter Progress Notes * Sabi Jackson MBBS - 11/28/2024 9:30 AM CDT CLINIC FOLLOW UP NOTE HPI: Katie Downing is a 64 y.o. female who underwent bilateral breast augmentation on 12/02/2023. She is very pleased with her results so far and has no concerns regarding her augmentation. She returns to see me to discuss labial hypertrophy and chafing. She states the excess skin is causing her discomfort and pain. Her bathing suits and undergarments get caught in between her labia majora. Slick is painful. She would like to discuss options for improvement and symptom relief. Review of systems Remaining systems negative unless otherwise stated. EXAM: Vitals: 11/28/24 0937 BP: 95/71 BP Location: Right arm Patient Position: Sitting Pulse: 73 Temp: 36.4 ??C (97.6 ??F) TempSrc: Temporal SpO2: 98% Weight: 48.4 kg (106 lb 11.2 oz) Height: 1.575 m (5' 2.01) EXAM: GENERAL: Alert and oriented, pleasant 63 y.o. female who is in no acute distress. PSYCH: Alert and oriented x 3. Mood appropriate with good eye contact. RESPIRATORY: No audible wheezes. No respiratory distress. BREASTS: Breast scars well healed and soft. Implant position symmetric. Nipple position a bit low for my liking, but satisfactory to patient. EXTREMITIES: No edema, no cyanosis, no clubbing. Skin is warm, dry, and intact without rashes or lesions. NEUROLOGIC: Cranial nerves II through XII are grossly intact. No focal neurological deficits. ASSESSMENT & PLAN: S/p bilateral breast augmentation. Labia majora hypertrophy Patient is pleased with her augmentation and does not wish to make any improvements to her results.In regard to her labial hypertrophy, I informed her I do not do labiaplasty and I recommend a consultation with my colleague Dr. Saleem. Patient had the opportunity to meet with Dr. Saleem today. Please see his note for details regarding labial hypertrophy and management options. Sabi Quezada MD Plastic and Reconstructive Surgery documented in this encounter Plan of Treatment Upcoming Encounters Date Type Department Care Team (Late st Contact Info) Description 01/19/2025 11:15 AM CDT Office Visit [facility] Plastic Surgery [address] [place] [phone] Sabi Jackson MBBS [address] [place] [phone] Scheduled Referrals Name Type Priority Associated Diagnoses Order Schedule Ambulatory referral to Plastic Surgery Outpatient Referral Routine Excess skin Ordered: 11/18/2024 documented as of this encounter Visit Diagnoses Diagnosis Encounter for cosmetic procedure- Primary documented in this encounter Additional Health Concerns Infection Onset Date Last Indicated Resolved Time Influenza 11/18/2024 11/18/2024 11/28/2024 8:17 PM CDT documented as of this encounter Care Teams Enroller Relationship Specialty Start Date End Date Yazmin Mcintyre, LAND SURVEY TECHNICIAN [address] [place] [phone] PCP - General Family Medicine 10/05/23 documented as of this encounter
[2025-01-09 15:07] LABS: Basophils Absolute Auto 0.03 K/uL (0.00-0.30); Basophils Percent Auto 0.5 % (0.0-3.0); Eosinophils Absolute Auto 0.11 K/uL (0.00-0.50); Eosinophils Percent Auto 1.9 % (0.0-7.0); Hematocrit 35.1 % (33.0-51.0); Hemoglobin* 11.5 gm/dL (12.0-16.0); Lymphocytes Absolute Auto 1.17 K/uL (0.90-2.90); Lymphocytes Percent Auto 20.3 % (20-44); Mean Corpuscular HGB Conc 33 gm/dL (32-36); Mean Corpuscular Hemoglobin 32 pg (26-34); Mean Corpuscular Volume 98 fL (80-100); Monocytes Percent Auto 6.8 % (0.0-11.0); Neutrophils Absolute Auto 4.06 K/uL (1.7-7.0); Neutrophils Percent Auto 70.5 % (42.0-72.0); Platelet Count* 216 K/uL (140-440); RDW Coefficient of Variation % 13.1 % (11.5-15.5); Red Blood Count 3.59 m/uL (4.00-5.20); White Blood Count* 5.76 K/uL (4.50-11.00)
[2025-01-09] MEDS: MORPHINE 4 MG/ML INJ IVP (15:08)
[2025-01-09 15:26] LABS: Albumin* 4.2 g/dL (3.3-5.0); Chloride* 107 mmol/L (96-114); Potassium* 3.9 mmol/L (3.6-5.1); Sodium* 141 mmol/L (135-149)
[2025-01-09 15:29] LABS: Alanine Aminotransferase* 62 U/L (4-35); Alkaline Phosphatase* 94 U/L (40-150); Anion Gap 7 mEq/L (7-15); Aspartate Amino Transferase* 50 U/L (12-35); Bilirubin Total* 0.6 mg/dL (0.1-1.5); Blood Urea Nitrogen* 20 mg/dL (7-30); Carbon Dioxide* 27 mmol/L (20-32); Creatinine* 0.9 mg/dL (0.5-1.5); Est. Creatinine Clearance* 48.25; Estimated Glomerular Filt Rate 72 ml/min
[2025-01-09 15:30] LABS: Calcium* 9.5 mg/dL (8.4-10.6); Glucose* 95 mg/dL (60-115)
[2025-01-09 15:50] LABS: Troponin I* < 0.01 ng/mL (0.01-0.04)
[2025-01-09 16:06] LABS: Slide Review Reflex No
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
[2025-01-09] MEDS: KETOROLAC 15 MG/ML inj IVP (17:14)
== END 2025-01-09 18:02 | disposition home or self-care (01) ==
PROVIDERS: Emergency Provider Student in an Organized Health Care Education/Training Program
DX: M25.532 Pain in left wrist (principal); S82.035A Nondisplaced transverse fracture of left patella, initial encounter for closed fracture; V43.02XA Car driver injured in collision with other type car in nontraffic accident, initial encounter
CPT/HCPCS: 36415; 70450; 71260; 72125; 73110; 73130; 73560; 74177; 80053; 82565; 84484; 85025; 93005; 94761; 96374; 96375; 99285; J1885; J2270; Q9967